=== PATIENT | male | born 1970 | race Two or more races ===

== ENCOUNTER 2025-03-17 07:35 | Outpatient (CLI) | payer OTHER | END 2025-03-17 07:40 | disposition home or self-care (01) | LOC: TOM 07:35 | PROVIDERS: ATTEND Internal Medicine Gastroenterology | DX: R19.5 Other fecal abnormalities (principal); Z80.0 Family history of malignant neoplasm of digestive organs; D12.8 Benign neoplasm of rectum; K57.30 Diverticulosis of large intestine without perforation or abscess without bleeding ==